=== PATIENT | male | born 1945 | race Caucasian/White ===

== ENCOUNTER → 2019-06-02 | Outpatient (CLI) | payer MEDICARE ==
[~2019-06-02] MED LIST: REGADENOSON 0.4 MG/5 ML DISP.SYRIN. IV ONE
--- NOTE | 2019-06-03 13:04 | PCVCIMAG ---
APPROVED REPORT Imaging Protocol: Rest Tc-99m/Stress Tc-99m 1 day Study performed: 06/02/2019 09:07:51 Indication: Chest pain Patient Location: Out-Patient Stress Nurse: Sammi Lassiter RN, Teetee Denson RN CO Tech:Sera Cruzjuan josé [facility] Ht: 5 ft 9 in Wt: 205 lbs BSA: 2.09 m2 HR: 47 bpm BP: 152/78 mmHg BMI: 30.26 Rhythm: Sinus Bradycardia with blocked PAC'S Medical History Medical History: Hyperlipidemia, GERD, Esophagitis Medications: ASA, Atorvastatin, Chlorthalidone, Losartan Allergies: No known drug allergies Cardiac Risk Factors: Age Pretest Chest Pain Characteristics: No chest pain Exercise History: Physically active Resting Data Rest SPECT myocardial perfusion imaging was performed in supine position 45 minutes following the intravenous injection of 9.7 mCi of Tc-99m Sestamibi. Time of rest injection: 0900 Date: 06/02/2019 Administration Route: IV Administration Site: Right AC Pharmacologic Stress Pharmacologic stress test was performed by injecting Regadenoson 0.4 mg IV push over 10-15 seconds immediately followed by the intravenous injection of 33.3 mCi of Tc-99m Sestamibi. Time of stress injection: 1015 Date: 06/02/2019 Administration Route: IV Administration Site: Right AC Gated Stress SPECT was performed 45 minutes after stress injection. The images were gated to evaluate regional wall motion and calculate left ventricular ejection fraction. Stress Test Details Stress Test: Pharmacologic stress was paired with low level exercise. Reason for pharmacologic stress test: physical limitation. HRMax Heart Rate (APMHR): 147 bpm Resting HR: 47 bpmTarget HR (85% APMHR): 124 bpm Max HR Achieved: 97 bpm % of APMHR: 65 Recovery HR: 66 bpm BP Resting BP: 152/78 mmHg Max BP: 162/70 mmHg Recovery BP: 144/80 mmHg ECG Resting ECG: Sinus Bradycardia with blocked PAC'S Stress ECG: Sinus Rhythm, PAC's Arrhythmia: PAC's Recovery ECG: Sinus Rhythm, PAC's Clinical Reason for Termination: Completed protocol Stress Symptoms: Dyspnea, Lightheaded Exercise duration: 4 min 00 sec Exercise capacity: 1.6 METs Symptoms resolved during recovery. Stress ECG Conclusion 1. adequate response to iv lexiscan 2. inadequate heart rate for ecg diagnosis Study Data Post stress, the left ventricular ejection was 76%.. SSS: 0 SRS: 0 SDS: 0 TID = 0.87. Perfusion There is a large area of moderately reduced uptake in the entire segment of the inferior wall which is seen on the stress images as well as the resting images. This area thickens and moves normally and is most consistent with attenuation artifact. Nuclear Conclusion ECG Findings: non-diagnostic Clinical Findings: negative for ischemia Nuclear Findings: negative for ischemia Exercise Capacity: not assessed Left Ventricular Function: normal 1. low risk study 2. post stress lvef 76% without wall motion abnormalities <Conclusion> 1. adequate response to iv lexiscan 2. inadequate heart rate for ecg diagnosis
== END | disposition home or self-care (01) ==
LOC: PCVCIMAG 08:48
PROVIDERS: ATTEND Internal Medicine
DX: E78.5 Hyperlipidemia, unspecified (principal)
CPT/HCPCS: 78452; 93017; A9500; J2785

== ENCOUNTER 2019-12-26 18:00 | Observation (INO) | payer MEDICARE ==
[~2019-12-26] VITALS: Ht 175.3 cm; Wt 87.7 kg
--- NOTE | 2019-12-26 18:41 | PHYS DOC ---
Adult General Chief Complaint Chief Complaint: SYNCOPE HPI HPI 74-year-old male presents emergency Department with complaints of syncopal episode. Patient states he was at [employer] peppers became hot, flushed nausea with vomiting and subsequently passed out. Patient's significant other was at a table states he was not tracking at that time had a blank stare, this lasted approximately 5 minutes. Patient denies any chest pain or shortness of breath however did have prodromal hot flash with nausea and vomiting. Patient has underlying history of hypertension. Patient states he recently seen his primary care physician with physical exam completed. EKG is reviewed with evidence of sinus arrhythmia, otherwise unremarkable. Patient's blood pressure is 145/71, heart rate 72. Nothing makes his symptoms worse, nothing makes his symptoms better. Review of Systems Review of Systems Constitutional: Denies fever or chills [] Respiratory: Denies cough or shortness of breath [] Cardiovascular: No additional information not addressed in HPI [] GI: Denies abdominal pain, + nausea, vomiting, no bloody stools or diarrhea [] : Denies dysuria or hematuria [] Musculoskeletal: Denies back pain or joint pain [] Neurologic: Denies headache, focal weakness or sensory changes [] All other systems were reviewed and found to be within normal limits, except as documented in this note. Physical Exam Physical Exam Constitutional: Well developed, well nourished, no acute distress, non-toxic appearance. [] HENT: Normocephalic, atraumatic, bilateral external ears normal, oropharynx moist, no oral exudates, nose normal. [] Eyes: PERRLA, EOMI, conjunctiva normal, no discharge. [] Cardiovascular:Heart rate regular rhythm, no murmur [] Lungs & Thorax: Bilateral breath sounds clear to auscultation [] Abdomen: Bowel sounds normal, soft, no tenderness, no masses, no pulsatile masses. [] Skin: Warm, dry, no erythema, no rash. [] Back: No tenderness, no CVA tenderness. [] Extremities: No tenderness, no edema. [] Neurologic: Alert and oriented X 3, no focal deficits noted. [] Psychologic: Affect normal, judgement normal, mood normal. [] Current Patient Data Vital Signs Vital Signs Date Time Temp Pulse Resp B/P (MAP) Pulse Ox O2 Delivery O2 Flow Rate FiO2 12/26/19 18:00 97.7 70 28 145/71 (95) 98 Room Air 97.7 Lab Values Laboratory Tests Test 12/26/19 19:31 12/26/19 19:54 White Blood Count 7.9 x10^3/uL (4.0-11.0) Red Blood Count 4.90 x10^6/uL (4.30-5.70) Hemoglobin 15.7 g/dL (13.0-17.5) Hematocrit 45.7 % (39.0-53.0) Mean Corpuscular Volume 93 fL (79-100) Mean Corpuscular Hemoglobin 32 pg (25-35) Mean Corpuscular Hemoglobin Concent 34 g/dL (31-37) Red Cell Distribution Width 13.2 % (11.5-14.5) Platelet Count 192 x10^3/uL (140-400) Neutrophils (%) (Auto) 91 % (31-73) H Lymphocytes (%) (Auto) 2 % (24-48) L Monocytes (%) (Auto) 6 % (0-9) Eosinophils (%) (Auto) 1 % (0-3) Basophils (%) (Auto) 0 % (0-3) Neutrophils # (Auto) 7.2 x10^3/uL (1.8-7.7) Lymphocytes # (Auto) 0.1 x10^3/uL (1.0-4.8) L Monocytes # (Auto) 0.5 x10^3/uL (0.0-1.1) Eosinophils # (Auto) 0.1 x10^3/uL (0.0-0.7) Basophils # (Auto) 0.0 x10^3/uL (0.0-0.2) Segmented Neutrophils % 74 % (35-66) H Band Neutrophils % 17 % (0-9) H Lymphocytes % 3 % (24-48) L Monocytes % 5 % (0-10) Basophils % 1 % (0-3) Platelet Estimate Adequate (ADEQUATE) D-Dimer (Cookie) 0.32 ug/mlFEU (0.00-0.50) Sodium Level 135 mmol/L (136-145) L Potassium Level 3.6 mmol/L (3.5-5.1) Chloride Level 97 mmol/L (98-107) L Carbon Dioxide Level 29 mmol/L (21-32) Anion Gap 9 (6-14) Blood Urea Nitrogen 23 mg/dL (8-26) Creatinine 1.0 mg/dL (0.7-1.3) Estimated GFR (Cockcroft-Gault) 73.0 BUN/Creatinine Ratio 23 (6-20) H Glucose Level 116 mg/dL (70-99) H Calcium Level 9.0 mg/dL (8.5-10.1) Magnesium Level 1.8 mg/dL (1.8-2.4) Total Bilirubin 0.9 mg/dL (0.2-1.0) Aspartate Amino Transferase (AST) 25 U/L (15-37) Alanine Aminotransferase (ALT) 30 U/L (16-63) Alkaline Phosphatase 89 U/L (46-116) Troponin I Quantitative < 0.017 ng/mL (0.000-0.055) Total Protein 6.5 g/dL (6.4-8.2) Albumin 3.9 g/dL (3.4-5.0) Albumin/Globulin Ratio 1.5 (1.0-1.7) Lactic Acid Level 1.1 mmol/L (0.4-2.0) Laboratory Tests 12/26/19 19:31 Laboratory Tests 12/26/19 19:31 EKG EKG EKG reviewed interpretation time 1816, heart rate 68, left axis deviation, no evidence of ST elevation ME, sinus arrhythmia[] Radiology/Procedures Radiology/Procedures [facility] [address] [place], [place] [id number] IMAGING REPORT Signed PATIENT: THOMAS LONG ACCOUNT: [id number] : 1945 LOCATION: ER AGE: 74 SEX: M EXAM STATUS: REG ER ORD. PHYSICIAN: CECELIA COSTELLO MD REASON: Syncope PROCEDURE: PORTABLE CHEST 1V Examination: PORTABLE CHEST 1V History: Syncope Comparison/Correlation: None Findings: Portable upright frontal view of the chest was obtained. Heart size and pulmonary vascular normal. No infiltrate or pleural effusion. No pneumothorax. Bony structures unremarkable. Impression: No suspicious process. Electronically signed by: Layton Rogel MD (12/26/2019 7:43 PM) [id number] DICTATED and SIGNED BY: LAYTON ROGEL MD DATE: 12/26/191942 [] [facility] [address] [place] [address] IMAGING REPORT Signed PATIENT: THOMAS LONG ACCOUNT: [id number] : 1945 LOCATION: ER AGE: 74 SEX: M EXAM STATUS: PRE ER ORD. PHYSICIAN: CECELIA COSTELLO MD REASON: syncope PROCEDURE: CT HEAD WO CONTRAST CT HEAD INDICATION: Syncope COMPARISON: None Available. Exposure: One or more of the following individualized dose reduction techniques were utilized for this examination: 1. Automated exposure control 2. Adjustment of the mA and/or kV according to patient size 3. Use of iterative reconstruction technique TECHNIQUE: 5 mm contiguous axial images were obtained from the skull base to the vertex in both bone and soft tissue algorithm. FINDINGS: No abnormal attenuation within the brain parenchyma. No evidence of acute intracranial hemorrhage. No extra-axial fluid collections. No mass effect or midline shift. Ventricular size is appropriate. Basal cisterns are patent. No fractures identified.Ayoub-white differentiation is preserved.Globes and orbits are within normal limits. Paranasal sinuses and mastoid air cells are clear. IMPRESSION: No acute intracranial findings. Electronically signed by: Declan Blankenship MD (12/26/2019 6:59 PM) [id number] DICTATED and SIGNED BY: DECLAN BLANKENSHIP MD DATE: 12/26/191858 Course & Med Decision Making Course & Med Decision Making Pertinent Labs and Imaging studies reviewed. (See chart for details) []74-year-old male presents emergency Department with complaints of syncopal episode. Patient states he was at [employer] peppers became hot, flushed nausea with vomiting and subsequently passed out. Patient's significant other was at a table states he was not tracking at that time had a blank stare, this lasted approximately 5 minutes. Patient denies any chest pain or shortness of breath however did have prodromal hot flash with nausea and vomiting. Patient has underlying history of hypertension. Patient states he recently seen his primary care physician with physical exam completed. EKG is reviewed with evidence of sinus arrhythmia, otherwise unremarkable. Patient's blood pressure is 145/71, heart rate 72. Nothing makes his symptoms worse, nothing makes his symptoms better. Labs, imaging reviewed CT head without acute process As reviewed, troponin 0.017, d-dimer 0.32, white blood cell count 7.9, hemoglobin 15.7, metabolic profile unremarkable X-ray reveals no evidence of acute process. Dragon Disclaimer Dragon Disclaimer This electronic medical record was generated, in whole or in part, using a voice recognition dictation system. Departure Departure Impression: Primary Impression: Syncope Disposition: 09 ADMITTED INPATIENT Admitting Physician: OLGA Condition: STABLE Referrals: KAREN LOW (PCP) Problem Qualifiers Primary Impression: Syncope Syncope type: unspecified Qualified Codes: R55 - Syncope and collapse CECELIA COSTELLO MD Dec 26, 2019 18:41
--- NOTE | 2019-12-26 19:02 | RAD ---
CT HEAD INDICATION: Syncope COMPARISON: None Available. Exposure: One or more of the following individualized dose reduction techniques were utilized for this examination: 1. Automated exposure control 2. Adjustment of the mA and/or kV according to patient size 3. Use of iterative reconstruction technique TECHNIQUE: 5 mm contiguous axial images were obtained from the skull base to the vertex in both bone and soft tissue algorithm. FINDINGS: No abnormal attenuation within the brain parenchyma. No evidence of acute intracranial hemorrhage. No extra-axial fluid collections. No mass effect or midline shift. Ventricular size is appropriate. Basal cisterns are patent. No fractures identified.Ayoub-white differentiation is preserved.Globes and orbits are within normal limits. Paranasal sinuses and mastoid air cells are clear. IMPRESSION: No acute intracranial findings. Electronically signed by: Declan Blankenship MD (12/26/2019 6:59 PM) [id number]
[2019-12-26 19:43] LABS: BASO % 0 % (0-3); EOS # 0.1 x10^3/uL (0.0-0.7); EOS % 1 % (0-3); HEMATOCRIT 45.7 % (39.0-53.0); HEMOGLOBIN 15.7 g/dL (13.0-17.5); LYMPH # 0.1 x10^3/uL (1.0-4.8); LYMPH % 2 % (24-48); MEAN CORPUSCULAR HEMOGLOBIN 32 pg (25-35); MEAN CORPUSCULAR HGB CONC 34 g/dL (31-37); MEAN CORPUSCULAR VOLUME 93 fL (79-100); MONO # 0.5 x10^3/uL (0.0-1.1); MONO % 6 % (0-9); NEUT # 7.2 x10^3/uL (1.8-7.7); NEUT % 91 % (31-73); PLATELET COUNT 192 x10^3/uL (140-400); RED CELL DISTRIBUTION WIDTH 13.2 % (11.5-14.5); WHITE BLOOD COUNT 7.9 x10^3/uL (4.0-11.0)
--- NOTE | 2019-12-26 19:46 | RAD ---
Examination: PORTABLE CHEST 1V History: Syncope Comparison/Correlation: None Findings: Portable upright frontal view of the chest was obtained. Heart size and pulmonary vascular normal. No infiltrate or pleural effusion. No pneumothorax. Bony structures unremarkable. Impression: No suspicious process. Electronically signed by: Layton Garcia MD (12/26/2019 7:43 PM) [id number]
[2019-12-26 20:03] LABS: % BANDS 17 % (0-9); % BASOS 1 % (0-3); % LYMPHS 3 % (24-48); % MONOS 5 % (0-10); % SEGS 74 % (35-66); PLT ESTIMATE ADEQUATE (ADEQUATE); POTASSIUM 3.6 mmol/L (3.5-5.1)
[2019-12-26 20:16] LABS: ALBUMIN 3.9 g/dL (3.4-5.0); ALBUMIN/GLOBULIN RATIO 1.5 (1.0-1.7); MAGNESIUM 1.8 mg/dL (1.8-2.4); TOTAL BILIRUBIN 0.9 mg/dL (0.2-1.0); TOTAL PROTEIN 6.5 g/dL (6.4-8.2)
[2019-12-26 23:00] VITALS: BP 119/61
[2019-12-27] MEDS: ONDANSETRON PF 4 MG/2 ML VIAL. IVP PRN ×2 (00:06→08:22)
[2019-12-27 01:15] VITALS: BP 100/69
[2019-12-27 03:00] VITALS: BP 110/63
[2019-12-27 07:00] VITALS: BP 101/59
[2019-12-27] MEDS ORDERED: CITA20TA6 PO (10:33)
[2019-12-27] MEDS ORDERED: ATOR40TA59 PO (10:33)
[2019-12-27] MEDS ORDERED: LEVO125T5 PO (10:33)
[2019-12-27] MEDS ORDERED: LOSA-73 PO (10:33)
[2019-12-27] MEDS ORDERED: GABA600T7 PO (10:33)
[2019-12-27] MEDS ORDERED: CHLO25TA10 PO (10:33)
[2019-12-27 11:00] VITALS: BP 104/53
--- NOTE | 2019-12-27 12:06 | EKG ---
[facility] [address] [place] [address] Test Date: 2019-12-26 Test Time: 18:11:14 Pat Name: THOMAS LONG Department: Room: Gender: M Therapeutic Recreation Leader: : 1945 Requested By: CECELIA COSTELLO Order Number: [id number] Reading MD: Measurements Intervals Allred Rate: 68 P: OK: QRS: 12 QRSD: 92 T: 23 QT: 414 QTc: 445 Interpretive Statements SINUS ARRHYTHMIA NON SPECIFIC T ABNORMALITY BORDERLINE ECG No previous ECG available for comparison
--- NOTE | 2019-12-27 12:48 | PDOC2 ---
CARDIOLOGY CONSULT NOTE CHEIF COMPLAINT: Near syncope HPI: Micah is a pleasant 74-year-old man coming into the hospital today for a near syncopal episode. He was in his usual state of health and yesterday went to dinner and apparently had an episode where he was confused and glazed over and he also had a severe headache and has had difficulty with abdominal pain over the last several weeks. He barely has a abdominal hernia. In this setting and also not taking his gabapentin over the last couple days she started for some shingles issues he had an episode where he vomited after nearly passing out. This appears to be a vagal response. The EMS told the family that he had a heart rate in the 50s. The patient also notes that he always has heart rates in the 40s and 50s. He otherwise denies any exertional chest pain, dyspnea, orthopnea or PND. He is able to walk 1.5 miles daily without any problems. PMHX: 1. Hypertension 2. Shingles 3. hernia SOCHX: No alcohol, tobacco or illicit drug use. FAMHX: Noncontributory. CURRENT MEDS: Current Medications Medications (Trade) Dose Ordered Sig/Tamanna Route PRN Reason Start Time Stop Time Status Last Admin Dose Admin Ondansetron HCl (Zofran) 4 mg PRN Q6HRS PRN IVP NAUSEA/VOMITING 1ST CHOICE 12/27/19 00:00 12/27/19 08:22 ALLERGIES: Allergies Coded Allergies Type Severity Reaction Last Updated Verified No Known Drug Allergies 12/26/19 No ROS: Negative unless otherwise mentioned above in history of present illness PHYSICAL EXAM: Vital Signs/I&O: Vital Signs Date Time Temp Pulse Resp B/P (MAP) Pulse Ox O2 Delivery O2 Flow Rate FiO2 12/27/19 08:15 Room Air 12/27/19 07:00 98.5 74 24 101/59 (73) 98 98.5 I & O 12/26/19 12/26/19 12/27/19 15:00 23:00 07:00 Intake Total 0 ml Balance 0 ml Physical Exam: The patient appeared well nourished and normally developed. Head exam is unremarkable. No scleral icterus or corneal arcus noted. Neck is without jugular venous distension, thyromegaly, or carotid bruits. Carotid upstrokes are brisk bilaterally. Lungs are clear to auscultation and percussion. Cardiac exam reveals the PMI to be normally sized and situated. Rhythm is regular. First and second heart sounds normal. No murmurs, rubs or gallops. Abdominal exam reveals normal bowel sounds, no masses, no organomegaly and no aortic enlargement. Extremities are nonedematous and both femoral and pedal pulses are normal. Msk: No traumua Neuro: No focal deficits DIAGNOSTIC TESTING: Cardiac enzymes are negative Telemetry reveals short percent atrial tachycardia No other atrial fibrillation noted he has sinus rhythm with PACs on EKG Lab Laboratory Tests Test 12/26/19 19:31 12/26/19 19:54 White Blood Count 7.9 x10^3/uL (4.0-11.0) Red Blood Count 4.90 x10^6/uL (4.30-5.70) Hemoglobin 15.7 g/dL (13.0-17.5) Hematocrit 45.7 % (39.0-53.0) Mean Corpuscular Volume 93 fL (79-100) Mean Corpuscular Hemoglobin 32 pg (25-35) Mean Corpuscular Hemoglobin Concent 34 g/dL (31-37) Red Cell Distribution Width 13.2 % (11.5-14.5) Platelet Count 192 x10^3/uL (140-400) Neutrophils (%) (Auto) 91 % (31-73) H Lymphocytes (%) (Auto) 2 % (24-48) L Monocytes (%) (Auto) 6 % (0-9) Eosinophils (%) (Auto) 1 % (0-3) Basophils (%) (Auto) 0 % (0-3) Neutrophils # (Auto) 7.2 x10^3/uL (1.8-7.7) Lymphocytes # (Auto) 0.1 x10^3/uL (1.0-4.8) L Monocytes # (Auto) 0.5 x10^3/uL (0.0-1.1) Eosinophils # (Auto) 0.1 x10^3/uL (0.0-0.7) Basophils # (Auto) 0.0 x10^3/uL (0.0-0.2) Segmented Neutrophils % 74 % (35-66) H Band Neutrophils % 17 % (0-9) H Lymphocytes % 3 % (24-48) L Monocytes % 5 % (0-10) Basophils % 1 % (0-3) Platelet Estimate Adequate (ADEQUATE) D-Dimer (Cookie) 0.32 ug/mlFEU (0.00-0.50) Sodium Level 135 mmol/L (136-145) L Potassium Level 3.6 mmol/L (3.5-5.1) Chloride Level 97 mmol/L (98-107) L Carbon Dioxide Level 29 mmol/L (21-32) Anion Gap 9 (6-14) Blood Urea Nitrogen 23 mg/dL (8-26) Creatinine 1.0 mg/dL (0.7-1.3) Estimated GFR (Cockcroft-Gault) 73.0 BUN/Creatinine Ratio 23 (6-20) H Glucose Level 116 mg/dL (70-99) H Calcium Level 9.0 mg/dL (8.5-10.1) Total Bilirubin 0.9 mg/dL (0.2-1.0) Aspartate Amino Transf (AST/SGOT) 25 U/L (15-37) Alkaline Phosphatase 89 U/L (46-116) Total Protein 6.5 g/dL (6.4-8.2) Albumin 3.9 g/dL (3.4-5.0) Albumin/Globulin Ratio 1.5 (1.0-1.7) Lactic Acid Level 1.1 mmol/L (0.4-2.0) Laboratory Tests 12/26/19 19:31 ASSESSMENT: 1. Probable vasovagal response, depression diagnosis includes tachycardia or bradycardia arrhythmias. PLAN: 1. No further cardiac testing necessary at this time. He will need outpatient event recording. He'll follow-up with his primary hub lead at [facility] for this. He currently does not have any angina and his EKG and cardiac enzymes are unremarkable. No further inpatient testing is necessary. He may be able to eat now and he does not have any further issues no objections for a cardiac standpoint for discharge. Thank you this consultation. Please call with any further course. JANEY ROSA MD Dec 27, 2019 12:47
--- NOTE | 2019-12-27 14:15 | NUR ---
PATIENT ATE LUNCH AND WALKED HALLS WITH NO NAUSEA, VOMITING, OR CHEST PAIN. PATIENT STABLE AT TIME OF DISCHARGE. DISCHARGE INSTRUCTIONS DISCUSSED WITH PATIENT. PATIENT INFORMED TO FOLLOW UP WITH PCP WITH APPOINTMENT ON SUNDAY AND TO FOLLOW UP WITH CARDIOLOGY IN 1 WEEK. PATIENT WALKED TO [facility] BY THIS RN. PATIENTS BELONGINGS WITH PATIENT AT TIME OF DISCHARGE.
[2019-12-27] MEDS ORDERED: CITALOPRAM 20 MG TABLET. PO SCH (15:00)
[2019-12-27] MEDS ORDERED: GABAPENTIN 300 MG CAPSULE. PO SCH (15:00)
[2019-12-27] MEDS ORDERED: LEVOTHYROXINE 125 MCG TABLET PO SCH (15:00)
[2019-12-27] MEDS ORDERED: CHLORTHALIDONE 25 MG TABLET. PO SCH (15:00)
[2019-12-27] MEDS ORDERED: LOSARTAN POTASSIUM 50 MG TABLET. PO SCH (15:00)
--- NOTE | 2019-12-27 19:08 | SSS ---
ADMIT DATE: 12/27/2019 CHIEF COMPLAINT: Near syncope. 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 He basically presented with a syncopal episode, although he denies actually passing out. He states he actually got very dizzy and became nauseated and almost passed out. He was admitted overnight for telemetry monitoring. This morning, I saw and examined him, he is doing pretty well. I called Dr. Liang of the Cardiology Service. He saw the patient. We are going to discharge him this afternoon with close outpatient followup. PAST MEDICAL HISTORY: Hypertension, shingles, and hernia repair. ALLERGIES: None. FAMILY HISTORY: Diabetes. SOCIAL HISTORY: Does not drink, smoke or take drugs. He is a retired med malpractice document review attorney, he defense physicians, still does some legal work on the side. MEDICATIONS: Reviewed, please refer to the MRAD. REVIEW OF SYSTEMS: GENERAL: No history of weight change, weakness or fevers. SKIN: No bruising, hair changes or rashes. EYES: No blurred, double or loss of vision. NOSE AND THROAT: No history of nosebleeds, hoarseness or sore throat. HEART: No history of palpitations, chest pain or shortness of breath on exertion. LUNGS: Denies cough, hemoptysis, wheezing or shortness of breath. GASTROINTESTINAL: Denies changes in appetite, nausea, vomiting, diarrhea or constipation. GENITOURINARY: No history of frequency, urgency, hesitancy or nocturia. NEUROLOGIC: Denies history of numbness, tingling, tremor or weakness. PSYCHIATRIC: No history of panic, anxiety or depression. ENDOCRINE: No history of heat or cold intolerance, polyuria or polydipsia. EXTREMITIES: Denies muscle weakness, joint pain, pain on walking or stiffness. PHYSICAL EXAMINATION: VITALS: Within normal limits and are stable. GENERAL: No apparent distress. Alert and oriented. HEENT: Normal cephalic atraumatic, external auditory canals are patent EYES: Extraocular muscles are intact, pupils are equally round and reactive to light and accommodation MUSKULOSKELETAL: Well developed, well nourished, good range of motion ENDOCRINE: No thyromegaly was palpated LYMPHATICS: No cervical chain or axillary nodes were noted HEMATOPOIETIC: No bruising NECK: Supple, no JVD, no thyromegaly was noted. LUNGS: Clear to auscultation in all lung white without rhonchi or wheezing. HEART: RRR, S1, S2 present. Peripheral pulses intact, no obvious murmurs were noted. ABDOMEN: Soft, nontender. Positive bowel sounds no organomegaly, normal bowel sounds. EXTREMITIES: Without any cyanosis, clubbing, or edema. Pedal pulses intact, Homans sign is negative. NEUROLOGIC: Normal speech, normal tone. A & O x3, moves all extremities, no obvious focal deficits. PSYCHIATRIC: Normal affect, normal mood. Stable. SKIN: No ulcerations or rashes, good skin turgor, no jaundice. VASCULAR: Good capillary refill, neurovascular bundle appears to be intact. ASSESSMENT AND PLAN: Resolving near syncope. We will go ahead and discharge. DISPOSITION: Home. ACTIVITY: As tolerated. DIET: Low sodium. MEDICATIONS: Please see the MRAD. TOTAL TIME: 31 minutes. STEPHANIE RO DO DR: NATHANIEL/joselyn JOB#: [id number] / [id number]
[2019-12-27] MEDS ORDERED: ATORVASTATIN CALCIUM 40 MG TABLET. PO SCH (21:00)
== END 2019-12-27 14:40 | disposition home or self-care (01) ==
LOC: ER 18:00 → 2 NORTH 20:58
PROVIDERS: ADMIT Internal Medicine; ATTEND Internal Medicine
DX: R55 Syncope and collapse (principal); I10 Essential (primary) hypertension; Z98.890 Other specified postprocedural states
CPT/HCPCS: 36415; 70450; 71045; 80053; 83605; 83735; 84484; 85007; 85025; 85379; 93005; 96374; 96376; 99284; G0378; J2405; G0379